=== PATIENT | female | born 1945 | race Caucasian/White ===

== ENCOUNTER 2016-10-13 12:34 | Emergency (ER) | payer OTHER, MEDICARE ==
[~2016-10-13 12:34] MED LIST: ADVIL LIQUI-GE200 MG PO; ALEVE220 MG PO; ALPRAZOLAM0.25 M2 PO; ASPIR-LOW81 MG PO; ATORVASTATIN CA10 MG PO; BACTROBAN NASAL1 G1 BOTH NARES; BACTROBAN OINTM22 GM TP; CIPRO250 MG PO; CIPRO500 MG PO; CLEOCIN300 MG PO; DOCUSATE SODIU100 MG PO; DURAGESIC25 MCG TD; ENDOCET 5-3251 EACH PO; FLONASE ALLERG9.9 ML BOTH NARES; HYOSCYAMINE0.125 M1 SL; LISINOPRIL10 MG PO; LOPRESSOR25 MG PO; LOVENOX40 MG/0.4 SC; METOPROLOL TART25 MG PO; OMEPRAZOLE40 M1 PO; PERCOCET 7.51 TABLET PO; PRAVASTATIN SOD40 MG PO; PRILOSEC OTC20 MG PO; PRILOSEC20 MG PO; RANITIDINE HCL300 MG PO; SENNA PLUS TAB1 EACH PO; TRAZODONE HCL150 MG PO; VICODIN ES 7.51 EAC1 PO; VITAMIN B12 100MCG PO; VITAMIN D31000 UNI2 PO; b-12 PO
[2016-10-13 14:48] LABS: ADD MIUA? YES; BILIRUBIN NEGATIVE; BLOOD NEGATIVE; COLOR YELLOW ((YELLOW)); GLUCOSE (STRIP) NEGATIVE; KETONES 20; LEUKOCYTES NEGATIVE; NITRITE NEGATIVE; PROTEIN (STRIP) 100; SPECIFIC GRAVITY 1.021 (1.000-1.030); UROBILINOGEN 0.2 MG/DL (0.2-1.0)
[2016-10-13 14:51] LABS: BACTERIA NONE SEEN /HPF; EPITHELIAL CELLS RARE /HPF; MUCUS TRACE /LPF; RED BLOOD CELLS 0-5 /HPF (0-5); WHITE BLOOD CELLS 0-5 /HPF (0-5)
[2016-10-13 14:52] LABS: CASTS NONE SEEN /LPF; CRYSTALS NONE SEEN
[2016-10-13 16:19] LABS: HEMATOCRIT 39.2 % (36.0-46.0); MCH 31.6 PG (29.0-34.0); MCHC 33.7 G/DL (30.0-36.0); MCV 93.8 FL (83-99); MEAN PLAT.VOLUME 10.5 uM^3 (9.5-12.4); PLATELET COUNT 263 K/uL (156-360); RBC DIS.WIDTH-CV 12.8 % (11.8-14.6); RBC DIS.WIDTH-SD 42.7 % (39-53); RED BLOOD COUNT 4.18 M/uL (3.80-5.20); WHITE BLOOD COUNT 4.2 K/uL (4.1-10.2)
[2016-10-13 16:31] LABS: CHLORIDE 105 mEq/L (99-109); POTASSIUM 3.9 mEq/L (3.7-5.4); SODIUM 142 mEq/L (136-147)
[2016-10-13 16:33] LABS: GLUCOSE 83 mg/dL (70-99)
[2016-10-13 16:34] LABS: ANION GAP 14 MEQ/L (2-14)
[2016-10-13 16:37] LABS: GFR ESTIMATE (CALCULATED) > 59 mL/min/
[2016-10-13 16:38] LABS: UREA NITROGEN (BUN) 21 mg/dL (9-23)
[2016-10-13 16:42] LABS: TROP-I INTERPRETATION NEGATIVE; TROPONIN-I 0.01 ng/mL (0.0-0.30)
[2016-10-13] MEDS ORDERED: TESSALON PERLE100 MG PO (16:50)
[2016-10-13 17:02] VITALS: BP 191/85
== END 2016-10-13 17:06 | disposition home or self-care (01) ==
LOC: EME 12:34
PROVIDERS: Nurse Practitioner Family
DX: J06.9 Acute upper respiratory infection, unspecified (principal); K21.9 Gastro-esophageal reflux disease without esophagitis
CPT/HCPCS: 71020; 80048; 81003; 84484; 85027; 93005; 99281; 99285

== ENCOUNTER 2016-11-30 19:30 | Emergency (ER) | payer OTHER, MEDICARE ==
[~2016-11-30] VITALS: Ht 154.9 cm; Wt 47.5 kg
[~2016-11-30 19:30] MED LIST changes: +TESSALON PERLE100 MG PO
[2016-12-01] MEDS ORDERED: KEFLEX500 MG PO (00:25)
[2016-12-01 02:16] VITALS: BP 169/85
== END 2016-12-01 02:21 | disposition home or self-care (01) ==
LOC: EME 19:30 → EXP 19:30
PROC: 0HQFXZZ Repair Right Hand Skin, External Approach (ICD-10-PCS; principal; 2016-12-01)
PROC: 2W3EX1Z Immobilization of Right Hand using Splint (ICD-10-PCS; principal; 2016-12-01)
DX: S62.521B Displaced fracture of distal phalanx of right thumb, initial encounter for open fracture (principal); S61.011A Laceration without foreign body of right thumb without damage to nail, initial encounter; W18.09XA Striking against other object with subsequent fall, initial encounter; Y93.01 Activity, walking, marching and hiking
CPT/HCPCS: 73130; 99281; 99284; J0690